=== PATIENT | male | born 1960 | race Caucasian/White ===

== ENCOUNTER 2023-10-28 08:17 | Outpatient (CLI) | payer MEDICARE, SELFPAY | END 2023-10-28 08:18 | disposition home or self-care (01) | LOC: INJ CL 08:21 | PROVIDERS: Visit Provider Family Medicine | DX: M54.16 Radiculopathy, lumbar region (principal); M51.26 Other intervertebral disc displacement, lumbar region | CPT/HCPCS: 64483; J1100; Q9966 ==